=== PATIENT | female | born 1995 | race Two or more races ===

== ENCOUNTER → 2024-08-20 | Outpatient (CLI) | payer MEDICAID, SELFPAY ==
--- NOTE | 2024-08-20 14:30 | XR_ITS ---
Examination: Breast ultrasound, unilateral, left complete Date and time of exam: August 20, 2024 1445 hours Comparison July 25, 2023 INDICATIONS: Left breast 3:00 nodule 8 mm on left breast sonogram July 25, 2023 Technique: Real-time moscoso scale ultrasonographic imaging performed left breast including all 4 quadrants as well as nipple retroareolar and axillary region. Findings: 2:00 nodule circumscribed 6 x 4 mm IMPRESSION: BI-RADS Category 2: Benign findings
== END | disposition home or self-care (01) ==
LOC: CDIM 14:26
PROVIDERS: PCP Physician Assistant; Referring Provider Physician Assistant; Visit Provider Physician Assistant
DX: N63.21 Unspecified lump in the left breast, upper outer quadrant (principal)
CPT/HCPCS: 76641